=== PATIENT | female | born 1965 | race Caucasian/White ===

== ENCOUNTER 2024-02-04 10:10 | Outpatient (OUT) | payer OTHER, SELFPAY ==
--- NOTE | 2024-02-04 10:14 | MM_ITS ---
Patient Name: PRETTY FRANCES MR#: [id number] : 1965 Exam Date: 02/04/2024 Ordering Doctor: DR CARLI MUNGUIA M.D. RADIOLOGY REPORT PROCEDURE: MM TOMOSYNTHESIS SCREENING BI COMPARISON: MG MAMM SCREEN 3D KULWINDER CAD, 01/17/2023. MG MAMM SCREEN 3D KULWINDER CAD, 01/11/2022. MG MAMM SCREEN KULWINDER W CAD, 01/07/2021. MG MAMM KULWINDER SCRN W CAD DIG, 07/24/2013. INDICATIONS: screening Calculator Name NCI Breast Cancer Risk Assessment Tool 5 Year Breast Cancer Risk 1.50% Lifetime Breast Cancer Risk 7.40% Personal Breast Cancer No Personal Ovarian Cancer No Treatments None Family Cancers Father with prostate cancer at age 55. LOCATION: [facility] BREAST COMPOSITION: Scattered areas fibroglandular density. FINDINGS: DIAGNOSTIC CATEGORY 2--BENIGN FINDING: RIGHT BREAST: No significant suspicious finding. Scattered benign-appearing lymph nodes are present. No significant change has occurred. LEFT BREAST: No significant suspicious finding. Scattered benign-appearing lymph nodes are present. No significant change has occurred. RECOMMENDATIONS: ROUTINE MAMMOGRAM AND CLINICAL EVALUATION IN 12 MONTHS. PLEASE NOTE: A NORMAL MAMMOGRAM DOES NOT EXCLUDE THE POSSIBILITY OF BREAST CANCER. A CLINICALLY SUSPICIOUS PALPABLE LUMP SHOULD BE BIOPSIED. Dictated by: Enrrique Thomas M.D. on 02/06/2024 at 11:45 Approved by: Enrrique Thomas M.D. on 02/06/2024 at 11:48
== END 2024-02-04 10:11 | disposition home or self-care (01) ==
LOC: MAMMO 10:10
PROVIDERS: PCP Family Medicine; Visit Provider Family Medicine
DX: Z12.31 Encounter for screening mammogram for malignant neoplasm of breast (principal); Z80.42 Family history of malignant neoplasm of prostate
CPT/HCPCS: 77063; 77067

== ENCOUNTER 2025-03-18 07:27 | Outpatient (OUT) | payer OTHER, SELFPAY ==
--- NOTE | 2025-03-18 07:29 | MM_ITS ---
Patient Name: PRETTY FRANCES MR#: [id number] : 1965 Exam Date: 03/18/2025 Ordering Doctor: DR CARLI MUNGUIA M.D. RADIOLOGY REPORT PROCEDURE: MM TOMOSYNTHESIS SCREENING BI COMPARISON: MM TOMOSYNTHESIS SCREENING BI, 02/04/2024. MG MAMM SCREEN 3D KULWINDER CAD, 01/17/2023. MG MAMM SCREEN 3D KULWINDER CAD, 01/11/2022. MG MAMM KULWINDER SCRN W CAD DIG, 07/24/2013. INDICATIONS: screening for malignant neoplasm of beast Calculator Name NCI Breast Cancer Risk Assessment Tool 5 Year Breast Cancer Risk 1.50% Lifetime Breast Cancer Risk 7.00% Personal Breast Cancer No Personal Ovarian Cancer No Treatments None Family Cancers Father with prostate cancer at age 55. LOCATION: [facility] BREAST COMPOSITION: There are scattered areas of fibroglandular density. FINDINGS: DIAGNOSTIC CATEGORY 2--BENIGN FINDING: RIGHT BREAST: No significant suspicious finding. Similar focal asymmetries are present. There are a few punctate benign-appearing calcifications. Benign-appearing lymph nodes are noted along the chest wall. LEFT BREAST: No significant suspicious finding. Similar focal asymmetries are present. There are a few punctate benign-appearing calcifications. Benign-appearing lymph nodes are noted along the chest wall. RECOMMENDATIONS: ROUTINE MAMMOGRAM AND CLINICAL EVALUATION IN 12 MONTHS. PLEASE NOTE: A NORMAL MAMMOGRAM DOES NOT EXCLUDE THE POSSIBILITY OF BREAST CANCER. A CLINICALLY SUSPICIOUS PALPABLE LUMP SHOULD BE BIOPSIED. Dictated by: Jose Alejandro Simpson MD on 03/18/2025 at 09:52 Approved by: Jose Alejandro Simpson MD on 03/18/2025 at 09:56
== END 2025-03-18 07:28 | disposition home or self-care (01) ==
LOC: MAMMO 07:27
PROVIDERS: PCP Family Medicine; Visit Provider Family Medicine
DX: Z12.31 Encounter for screening mammogram for malignant neoplasm of breast (principal); Z80.42 Family history of malignant neoplasm of prostate
CPT/HCPCS: 77063; 77067